=== PATIENT | female | born 1970 ===

== ENCOUNTER 2018-01-31 10:34 | Emergency (ER) | payer OTHER ==
[~2018-01-31] VITALS: Ht 157.5 cm; Wt 63.5 kg
[~2018-01-31 10:34] MED LIST: ALPRAZOLAM ER1 MG PO; WELLBUTRIN SR150 MG PO
[2018-01-31] MEDS ORDERED: COZAAR25 MG PO (10:43)
[2018-01-31] MEDS ORDERED: SYNTHROID50 MCG PO (10:43)
[2018-01-31] MEDS ORDERED: IRON 100 PLUS1 EACH PO (10:44)
[2018-01-31] MEDS ORDERED: NEURIN-SL (10:44)
== END 2018-01-31 14:14 | disposition home or self-care (01) ==
LOC: ER 10:34
DX: N93.8 Other specified abnormal uterine and vaginal bleeding (principal); N92.0 Excessive and frequent menstruation with regular cycle

== ENCOUNTER 2018-06-23 16:02 | Outpatient (CLI) | payer OTHER ==
[~2018-06-23 16:02] MED LIST changes: +COZAAR25 MG PO; +IRON 100 PLUS1 EACH PO; +NEURIN-SL; +SYNTHROID50 MCG PO
== END 2018-06-23 16:18 | disposition home or self-care (01) ==
LOC: LAB 16:02
DX: D50.0 Iron deficiency anemia secondary to blood loss (chronic) (principal); D51.1 Vitamin B12 deficiency anemia due to selective vitamin B12 malabsorption with proteinuria; D51.3 Other dietary vitamin B12 deficiency anemia; D25.1 Intramural leiomyoma of uterus; F33.8 Other recurrent depressive disorders; E03.8 Other specified hypothyroidism; I10 Essential (primary) hypertension

== ENCOUNTER 2018-06-25 10:11 | Outpatient (CLI) | payer OTHER ==
[2018-07-14] MEDS ORDERED: CLONAZEP PO (12:17)
[2018-07-14] MEDS ORDERED: GLYCOTROL CAPS1 EACH PO (12:18)
[2018-07-14] MEDS ORDERED: VITB IM (12:18)
== END 2018-06-25 10:13 | disposition home or self-care (01) ==
LOC: SONOGRAMA 10:11
DX: N84.0 Polyp of corpus uteri (principal)

== ENCOUNTER 2018-07-16 06:03 | Day surgery (SDC) | payer OTHER ==
[~2018-07-16 06:03] MED LIST changes: +CLONAZEP PO; +GLYCOTROL CAPS1 EACH PO; +VITB IM
== END 2018-07-16 12:30 | disposition home or self-care (01) ==
LOC: CIR.AMB 06:03
DX: D25.0 Submucous leiomyoma of uterus (principal); N84.1 Polyp of cervix uteri